=== PATIENT | male | born 1960 | race Caucasian/White ===

== ENCOUNTER 2023-05-27 12:04 | Outpatient (CLI) | payer BC, SELFPAY ==
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
== END 2023-05-27 12:05 | disposition home or self-care (01) ==
LOC: DIET 12:05
PROVIDERS: PCP Family Medicine; Visit Provider Family Medicine
DX: J44.9 Chronic obstructive pulmonary disease, unspecified (principal); C61 Malignant neoplasm of prostate
CPT/HCPCS: 97802